=== PATIENT | female | born 1970 | race American Indian/Alaskan Native ===

== ENCOUNTER 2019-09-23 10:59 | Emergency (ER) | payer SELFPAY ==
[2019-09-23 12:12] LABS: BUN/Creatinine Ratio 13; Blood Urea Nitrogen 10 mg/dL (7-17); Calcium 8.8 mg/dL (8.4-10.2); Hemolysis Index 2
[2019-09-23 12:34] LABS: Hematocrit 25.8 % (30.3-42.9); Hemoglobin 7.7 gm/dl (10.1-14.3); Mean Corpuscular HGB Conc 30 % (30-34); Mean Corpuscular Volume 72 fl (79-97); Platelet Count 416 K/mm3 (140-440); Red Blood Count 3.58 M/mm3 (3.65-5.03)
[2019-09-23 12:45] LABS: Red Cell Distribution Width 25.7 % (13.2-15.2)
[2019-09-23 13:16] LABS: Anisocytosis 2+; Basophils % (Manual) 0 % (0.0-1.8); Eosinophils % (Manual) 0 % (0.0-4.3); Hypochromasia 2+; Total Cells Counted 100
[2019-09-23 13:18] LABS: Platelet Estimate Consistent w Auto
--- NOTE | 2019-09-23 13:31 | Emergency Department Report ---
ED General Adult HPI - General Chief complaint: Vaginal Bleeding Stated complaint: DIZZY/NAUSEA Time Seen by Provider: 09/23/19 13:27 Source: patient, EMS Mode of arrival: Wheelchair Limitations: No Limitations - History of Present Illness Initial comments: 49 YO AA FEMALE COMES TO THE ER WITH A 2 M HISTORY OF VAG BLEEDING. PT STATES SHE WAS SEEN AT [facility] IN [place] AND TOLD SHE HAD FIBROIDS. SHE THEN WENT TO [facility] SO THEY SENT HER HERE. SHE IS AMBULATORY AND NON TOXIC ON ADMIT TO ER SHE ALSO ENDORSES HX OF ENDOMETRIOSIS. PT IS ON PROVERA BUT STATES IT IS NOT WORKING SHE IS WANTING AN EMERGENT HYSTERECTOMY. PMH NONE PSH TUBAL TOE SURGERY PT DOES NOT HAVE OBGYN AND SHE HAS NO MED INSURANCE. SHE DENIES CP OR SOB ORTHOSTATIC BP IS NEG FOR ORTHOSTASIS. -: month(s) Associated Symptoms: malaise, nausea/vomiting Treatments Prior to Arrival: none - Related Data Allergies Allergy/AdvReac Type Severity Reaction Status Date / Time ketorolac [From Toradol] Allergy Hives Verified 09/23/19 11:02 ED Review of Systems ROS: Stated complaint: DIZZY/NAUSEA Other details as noted in HPI Comment: All other systems reviewed and negative ED Past Medical Hx - Past Medical History Previous Medical History?: Yes Hx Seizures: Yes Additional medical history: fibroids - Surgical History Past Surgical History?: Yes Additional Surgical History: tubal ligation - Family History Family history: no significant - Social History Smoking Status: Never Smoker Substance Use Type: None ED Physical Exam - General Limitations: No Limitations General appearance: alert, in no apparent distress - Head Head exam: Present: atraumatic, normocephalic - Eye Eye exam: Present: normal appearance - ENT ENT exam: Present: mucous membranes moist - Neck Neck exam: Present: normal inspection - Respiratory Respiratory exam: Present: normal lung sounds bilaterally. Absent: respiratory distress - Cardiovascular Cardiovascular Exam: Present: regular rate, normal rhythm (90 BPM ON EXAM). Absent: systolic murmur, diastolic murmur, rubs, gallop - GI/Abdominal GI/Abdominal exam: Present: soft, normal bowel sounds - Extremities Exam Extremities exam: Present: normal inspection - Back Exam Back exam: Present: normal inspection - Neurological Exam Neurological exam: Present: alert, oriented X3 - Psychiatric Psychiatric exam: Present: normal affect, normal mood - Skin Skin exam: Present: warm, dry, intact, normal color. Absent: rash ED Course Vital Signs 09/23/19 09/23/19 09/23/19 11:11 14:46 14:47 Temperature 98.4 F Pulse Rate 96 H 104 H Respiratory 17 14 Rate Blood Pressure 129/75 Blood Pressure 121/82 [Left] O2 Sat by Pulse 100 100 100 Oximetry ED Medical Decision Making - Lab Data Result diagrams: 09/23/19 11:39 09/23/19 11:39 - Radiology Data Radiology results: report reviewed, image reviewed - Medical Decision Making Lab Results 09/23/19 09/23/19 09/23/19 Range/Units 11:39 11:39 11:39 WBC 11.0 (4.5-11.0) K/mm3 RBC 3.58 L (3.65-5.03) M/mm3 Hgb 7.7 L (10.1-14.3) gm/dl Hct 25.8 L (30.3-42.9) % MCV 72 L (79-97) fl MCH 22 L (28-32) pg MCHC 30 (30-34) % RDW 25.7 H (13.2-15.2) % Plt Count 416 (140-440) K/mm3 Lymph % (Auto) Liability Claims Representative [place] % (Auto) Liability Claims Representative Eos % (Auto) Liability Claims Representative Baso % (Auto) Liability Claims Representative Lymph # Liability Claims Representative [place] # Liability Claims Representative Eos # Liability Claims Representative Baso # Liability Claims Representative Add Manual Diff Complete Total Counted 100 Seg Neutrophils % Liability Claims Representative Seg Neuts % (Manual) 79.0 H (40.0-70.0) % Band Neutrophils % 0 % Lymphocytes % (Manual) 16.0 (13.4-35.0) % Reactive Lymphs % (Man) 0 % Monocytes % (Manual) 5.0 (0.0-7.3) % Eosinophils % (Manual) 0 (0.0-4.3) % Basophils % (Manual) 0 (0.0-1.8) % Metamyelocytes % 0 % Myelocytes % 0 % Promyelocytes % 0 % Blast Cells % 0 % Nucleated RBC % Not Reportable Seg Neutrophils # Liability Claims Representative Seg Neutrophils # Man 8.7 H (1.8-7.7) K/mm3 Band Neutrophils # 0.0 K/mm3 Lymphocytes # (Manual) 1.8 (1.2-5.4) K/mm3 Abs React Lymphs (Man) 0.0 K/mm3 Monocytes # (Manual) 0.6 (0.0-0.8) K/mm3 Eosinophils # (Manual) 0.0 (0.0-0.4) K/mm3 Basophils # (Manual) 0.0 (0.0-0.1) K/mm3 Metamyelocytes # 0.0 K/mm3 Myelocytes # 0.0 K/mm3 Promyelocytes # 0.0 K/mm3 Blast Cells # 0.0 K/mm3 WBC Morphology Not Reportable Hypersegmented Neuts Not Reportable Hyposegmented Neuts Not Reportable Hypogranular Neuts Not Reportable Smudge Cells Not Reportable Toxic Granulation Not Reportable Toxic Vacuolation Not Reportable Dohle Bodies Not Reportable Pelger-Huet Anomaly Not Reportable Jason Rods Not Reportable Platelet Estimate Consistent w auto Clumped Platelets Not Reportable Plt Clumps, EDTA Not Reportable Large Platelets Not Reportable Giant Platelets Not Reportable Platelet Satelliting Not Reportable Plt Morphology Comment Not Reportable RBC Morphology Not Reportable Dimorphic RBCs Not Reportable Polychromasia Not Reportable Hypochromasia 2+ Poikilocytosis Not Reportable Anisocytosis 2+ Microcytosis Not Reportable Macrocytosis Not Reportable Spherocytes Not Reportable Pappenheimer Bodies Not Reportable Sickle Cells Not Reportable Target Cells Not Reportable Tear Drop Cells Not Reportable Ovalocytes Not Reportable Helmet Cells Not Reportable Mancera-[place] Bodies Not Reportable [place] Rings Not Reportable [place] Cells Not Reportable Bite Cells Not Reportable Crenated Cell Not Reportable Elliptocytes Not Reportable Acanthocytes (Spur) Not Reportable Rouleaux Not Reportable Hemoglobin C Crystals Not Reportable Schistocytes Not Reportable Malaria parasites Not Reportable Thomas Bodies Not Reportable Hem Pathologist Commnt No Sodium 139 (137-145) mmol/L Potassium 4.2 (3.6-5.0) mmol/L Chloride 103.0 (98-107) mmol/L Carbon Dioxide 22 (22-30) mmol/L Anion Gap 18 mmol/L BUN 10 (7-17) mg/dL Creatinine 0.8 (0.7-1.2) mg/dL Estimated GFR > 60 ml/min BUN/Creatinine Ratio 13 % Glucose 147 H (65-100) mg/dL Calcium 8.8 (8.4-10.2) mg/dL Troponin T (0.00-0.029) ng/mL HCG, Qual (Negative) HCG, Quant < 2 (0-4) mIU/mL Urine Color (Yellow) Urine Turbidity (Clear) Urine pH (5.0-7.0) Ur Specific [place] (1.003-1.030) Urine Protein (Negative) mg/dL Urine Glucose (UA) (Negative) mg/dL Urine Ketones (Negative) mg/dL Urine Blood (Negative) Urine Nitrite (Negative) Urine Bilirubin (Negative) Urine Urobilinogen (<2.0) mg/dL Ur Leukocyte Esterase (Negative) Urine WBC (Auto) (0.0-6.0) /HPF Urine RBC (Auto) (0.0-6.0) /HPF 09/23/19 09/23/19 09/23/19 Range/Units 14:47 14:47 Unknown WBC (4.5-11.0) K/mm3 RBC (3.65-5.03) M/mm3 Hgb (10.1-14.3) gm/dl Hct (30.3-42.9) % MCV (79-97) fl MCH (28-32) pg MCHC (30-34) % RDW (13.2-15.2) % Plt Count (140-440) K/mm3 Lymph % (Auto) [place] % (Auto) Eos % (Auto) Baso % (Auto) Lymph # [place] # Eos # Baso # Add Manual Diff Total Counted Seg Neutrophils % Seg Neuts % (Manual) (40.0-70.0) % Band Neutrophils % % Lymphocytes % (Manual) (13.4-35.0) % Reactive Lymphs % (Man) % Monocytes % (Manual) (0.0-7.3) % Eosinophils % (Manual) (0.0-4.3) % Basophils % (Manual) (0.0-1.8) % Metamyelocytes % % Myelocytes % % Promyelocytes % % Blast Cells % % Nucleated RBC % Seg Neutrophils # Seg Neutrophils # Man (1.8-7.7) K/mm3 Band Neutrophils # K/mm3 Lymphocytes # (Manual) (1.2-5.4) K/mm3 Abs React Lymphs (Man) K/mm3 Monocytes # (Manual) (0.0-0.8) K/mm3 Eosinophils # (Manual) (0.0-0.4) K/mm3 Basophils # (Manual) (0.0-0.1) K/mm3 Metamyelocytes # K/mm3 Myelocytes # K/mm3 Promyelocytes # K/mm3 Blast Cells # K/mm3 WBC Morphology Hypersegmented Neuts Hyposegmented Neuts Hypogranular Neuts Smudge Cells Toxic Granulation Toxic Vacuolation Dohle Bodies Pelger-Huet Anomaly Jason Rods Platelet Estimate Clumped Platelets Plt Clumps, EDTA Large Platelets Giant Platelets Platelet Satelliting Plt Morphology Comment RBC Morphology Dimorphic RBCs Polychromasia Hypochromasia Poikilocytosis Anisocytosis Microcytosis Macrocytosis Spherocytes Pappenheimer Bodies Sickle Cells Target Cells Tear Drop Cells Ovalocytes Helmet Cells Mancera-[place] Bodies [place] Rings [place] Cells Bite Cells Crenated Cell Elliptocytes Acanthocytes (Spur) Rouleaux Hemoglobin C Crystals Schistocytes Malaria parasites Thomas Bodies Hem Pathologist Commnt Sodium (137-145) mmol/L Potassium (3.6-5.0) mmol/L Chloride (98-107) mmol/L Carbon Dioxide (22-30) mmol/L Anion Gap mmol/L BUN (7-17) mg/dL Creatinine (0.7-1.2) mg/dL Estimated GFR ml/min BUN/Creatinine Ratio % Glucose (65-100) mg/dL Calcium (8.4-10.2) mg/dL Troponin T < 0.010 (0.00-0.029) ng/mL HCG, Qual Negative (Negative) HCG, Quant (0-4) mIU/mL Urine Color Red (Yellow) Urine Turbidity Cloudy (Clear) Urine pH 6.0 (5.0-7.0) Ur Specific [place] 1.020 (1.003-1.030) Urine Protein 100 mg/dl (Negative) mg/dL Urine Glucose (UA) Neg (Negative) mg/dL Urine Ketones Neg (Negative) mg/dL Urine Blood Lg (Negative) Urine Nitrite Neg (Negative) Urine Bilirubin Neg (Negative) Urine Urobilinogen < 2.0 (<2.0) mg/dL Ur Leukocyte Esterase Sm (Negative) Urine WBC (Auto) 19.0 H (0.0-6.0) /HPF Urine RBC (Auto) > 182.0 (0.0-6.0) /HPF Vital Signs 09/23/19 09/23/19 09/23/19 11:11 14:46 14:47 Temperature 98.4 F Pulse Rate 96 H 104 H Respiratory 17 14 Rate Blood Pressure 129/75 Blood Pressure 121/82 [Left] O2 Sat by Pulse 100 100 100 Oximetry LABS NOTED US NOTED PT EDUCATED ON DUB AND WHEN BLOOD NEEDS TO GIVEN. NOEMI EXPLAINED TO HER THAT THE ER IS NOT WHERE SHE CAN GET HER HYSTERECTOMY AND THAT SHE WOULD NEED TO SEE OBGYN FOR THIS. ON DC PT AMBULATORY AND NON ILL APPEARING. PT WILL DC HOME AND [facility] Critical care attestation.: If time is entered above; I have spent that time in minutes in the direct care of this critically ill patient, excluding procedure time. ED Disposition Clinical Impression: DUB (dysfunctional uterine bleeding), Uterine fibroid Disposition: DC-01 TO HOME OR SELFCARE Is pt being admited?: No Does the pt Need Aspirin: No Condition: Stable Additional Instructions: TAKE A DAILY MULTIVITAMIN WITH IRON HYDRATE WELL FOLLOW UP WITH OBGYN FOR YOUR VAG BLEEDING LET THEM KNOW YOU WERE HERE AND THEY CAN GET YOUR RECORD MOTRIN OR TYLENOL FOR PAIN DIET AND ACTIVITY TOLERATED Referrals: DARREN PIPER MD [Staff Physician] - 3-5 Days Time of Disposition: 15:34
[2019-09-23 14:36] LABS: Bilirubin,Urine NEG (Negative); Blood,Urine LG (Negative); Color,Urine Red (Yellow); Urobilinogen,Urine < 2.0 mg/dL (<2.0)
[2019-09-23 14:38] LABS: RBC,Urine > 182.0 /HPF (0.0-6.0)
[2019-09-23 14:47] VITALS: BP 121/82
--- NOTE | 2019-09-23 15:43 | Ultrasound Report ---
Pelvic ultrasound complete INDICATION: Dysfunctional uterine bleeding, pelvic pain FINDINGS: Transabdominal and transvaginal imaging is performed. The uterus measures 14.2 cm in length. Endometrial stripe measures 13 mm. There is a 3 cm fibroid in the right body of the uterus. There is a 1.5 cm nabothian cyst The right ovary is not visualized. The left ovary is not visualized. IMPRESSION: There is a 3 cm fibroid in the uterus. Endometrium is thickened measuring 13 mm. Neither ovary is visualized. Signer Name: Silverio Wright MD Signed: 09/23/2019 3:39 PM Workstation Name: [id number]
--- NOTE | 2019-09-26 08:39 | Ultrasound Report ---
Pelvic Ultrasound HISTORY: Acute generalized abdominal pain and dysfunctional uterine bleeding. TECHNIQUE: Grayscale and color Doppler imaging performed. COMPARISON: None FINDINGS: Please note that the transabdominal portion of this exam was performed and reported on 09/09. This exam represents the endovaginal portion of the exam which was completed to be read today , 3 days after the exam was actually performed. As reported on the transabdominal portion of the exam, there is a 1.5 cm simple-appearing nabothian c yst. There is also a slightly heterogeneous echogenicity uterine body mass measuring 3.1 cm likely re presenting a fibroid. The endometrial echo complex is slightly thickened measuring 1.5 cm; however, t his can be a normal finding depending on stage in menstrual cycle. Correlate with the history. Neithe r ovary is identified. There is no pelvic free fluid. IMPRESSION: Uterine fibroid and other incidentals as above. Otherwise nothing acute. Signer Name: Oscar Ramos MD Signed: 09/26/2019 8:35 AM Workstation Name: [id number]
== END 2019-09-23 16:35 | disposition home or self-care (01) ==
LOC: ED 10:59
DX: N93.8 Other specified abnormal uterine and vaginal bleeding (principal); D25.9 Leiomyoma of uterus, unspecified
CPT/HCPCS: 36415; 76830; 76856; 80048; 81001; 84484; 84702; 84703; 85007; 85025; 86850; 86900; 86901; 87086; 93005; 93010